=== PATIENT | male | born 1945 | race Caucasian/White ===

== ENCOUNTER 2016-10-01 11:15 | Outpatient (CLI) | payer OTHER ==
--- NOTE | 2016-10-01 11:36 | DIAGNOSTIC IMAGING REPORT ---
PROCEDURE: XR CHEST 2 VIEW INDICATION: PNEUMONIA,BACTERIAL MEMORY LOSS DUE TO BRAIN DAMAGE TECHNIQUE: PA and lateral views. COMPARISON: None available FINDINGS: Lungs are clear. COPD. Heart and mediastinum are normal. Thorax is normal. IMPRESSION: 1. COPD. Lungs clear.
== END 2016-10-01 23:00 ==
LOC: XR SRH 11:15
DX: J44.9 Chronic obstructive pulmonary disease, unspecified (principal)